=== PATIENT | male | born 1940 | race Caucasian/White ===

== ENCOUNTER → 2023-07-04 11:29 | Outpatient (BNVA) | payer MEDICARE, MEDICAID, SELFPAY | PROVIDERS: Referring Provider Nurse Practitioner Family; Visit Provider Dermatology | DX: D18.01 Hemangioma of skin and subcutaneous tissue (principal); L57.0 Actinic keratosis; L82.1 Other seborrheic keratosis; D23.5 Other benign neoplasm of skin of trunk; L85.3 Xerosis cutis; L57.8 Other skin changes due to chronic exposure to nonionizing radiation; L91.8 Other hypertrophic disorders of the skin | CPT/HCPCS: 17000; 99203 ==